=== PATIENT | male | born 1960 | race Caucasian/White ===

== ENCOUNTER 2016-09-01 21:18 | Emergency (ER) | payer MEDICARE ==
[2016-09-01] MEDS ORDERED: IPRATROPIUM/ALBUTEROL SULFATE 3 ML AMPUL.NEB NEB ONE (21:55)
--- NOTE | 2016-09-01 22:01 | ED Physician Documentation ---
General Adult - HISTORIAN Historian: patient, child - HPI Stated Complaint: FALL/CONGESTION Chief Complaint: General Adult Additional Information: Fell at home 2/2 coughing episode. Has hematoma right arm and skin tear left arm. Cough productive of thick green mucus for 4-5 days. Quit smoking 4 days ago. 6L O2/NC 07/01. - ROS CONST: denies: fever, sweating CVS/RESP: cough - PAST HX Past History: COPD, CHF Other History: other (back pain, chronic pain, IDDM) Immunizations: tetanus (5-6 years ago) Allergies/Adverse Reactions: Allergies Allergy/AdvReac Type Severity Reaction Status Date / Time morphine Allergy Verified 09/01/16 21:40 Home Medications: Ambulatory Orders Medication Instructions Recorded Fluticasone/Vilanterol [Breo 1 each IH BID 09/01/16 Ellipta 100-25 Mcg INH] Furosemide [Lasix] 40 mg PO DAILY 09/01/16 Guaifenesin [Mucinex] 600 mg PO BID 09/01/16 Insulin Aspart Protam & Aspart 60 unit SQ HS 09/01/16 [Novolog Mix 70-30 Flexpen Syrn] Insulin Aspart Protam & Aspart 70 unit SQ AM 09/01/16 [Novolog Mix 70-30 Flexpen Syrn] Olmesartan Medoxomil [Benicar] 20 mg PO QDAY 09/01/16 Oxycodone HCl [Oxycontin] 40 mg PO Q6 PRN 09/01/16 Oxycodone HCl/Acetaminophen 1 tab PO Q6 PRN 09/01/16 [Oxycodone-Acetaminophen 10-325] Venlafaxine HCl [Effexor Xr] 150 mg PO QDAY 09/01/16 - SOCIAL HX Smoking History: secondhand, cigarettes ([age], 3 PPP; [age] 1 PPD; 58 pack years) - FAMILY HX Family History: No (no signif) - VITAL SIGNS Vital Signs: Vital Signs Temp Pulse Resp BP Pulse Ox 98.3 F 91 H 20 101/67 96 09/01/16 21:25 09/01/16 21:25 09/01/16 21:25 09/01/16 21:25 09/01/16 21:25 - REVIEWED ASSESSMENTS Nursing Assessment Reviewed: Yes Vitals Reviewed: Yes Progress - Progress Progress: Chest 2 views History: COPD exacerbation Findings: Moderate emphysema is observed. Central pulmonary artery enlargement and calcified granulomas are noted. Heart size is normal. There is no infiltrate or pleural effusion. Impression: 1. Moderate emphysema. 2. Probable pulmonary hypertension. Electronically signed on Sep 01, 2016 10:49:04 PM CDT by: Tate Lux ED Results Lab/Radiology - Orders Orders: ED Orders Category Date Time Status Apply occlusive dressing D Care 09/01/16 21:55 Active Cleanse with NS and Chlorhexid 1T Care 09/01/16 21:55 Active CHEST P.A.&LAT 2 VIEWS [RAD] Stat Exams 09/01/16 Ordered Ipratropium/Albuterol Sulfate [Duoneb] Med 09/01/16 21:55 Once 3 ml NEB NOW ONE General Adult Physical Exam - PHYSICAL EXAM GENERAL APPEARANCE: mild distress EENT: eye inspection normal, ENT inspection normal NECK: normal inspection, supple RESPIRATORY: breath sounds normal (but markedly decreased throughout) CVS: reg rate & rhythm, heart sounds normal RECTAL: deferred BACK: normal inspection SKIN: warm/dry, normal color, other (Skin tear 10x4 cm (pt cut off fskin) left dorsal forearm. Hematoma 10/15 cm right ventral forearm with scattered 1-5 mm red petechial skin bleeds) EXTREMITIES: normal range of motion (gait), no evidence of injury NEURO: CN's nml as tested, motor nml, sensation nml, cognition normal Discharge Clincal Impression: COPD exacerbation Additional Instructions: Follow up with your providers as scheduled. Take all the prednisone as prescribed. Home Medications: Ambulatory Orders Fluticasone/Vilanterol [Breo Ellipta 100-25 Mcg INH] 1 each IH BID 09/01/16 Furosemide [Lasix] 40 mg PO DAILY 09/01/16 Guaifenesin [Mucinex] 600 mg PO BID 09/01/16 Insulin Aspart Protam & Aspart [Novolog Mix 70-30 Flexpen Syrn] 60 unit SQ HS Insulin Aspart Protam & Aspart [Novolog Mix 70-30 Flexpen Syrn] 70 unit SQ AM Olmesartan Medoxomil [Benicar] 20 mg PO QDAY 09/01/16 Oxycodone HCl [Oxycontin] 40 mg PO Q6 PRN 09/01/16 Oxycodone HCl/Acetaminophen [Oxycodone-Acetaminophen 10-325] 1 tab PO Q6 PRN Venlafaxine HCl [Effexor Xr] 150 mg PO QDAY 09/01/16 Condition: Fair Disposition: 01 HOME, SELF-CARE Decision to Admit: NO Decision Time: 23:20
[2016-09-01 22:41] LABS: BASOPHILS % 0.6 (0.0-1.5); EOSINOPHILS % 3.1 % (0.0-6.8); LYMPHOCYTES # 1.3 # k/uL (0.6-4.0); MEAN CORPUSCULAR HEMOGLOBIN 32.1 pg (28.0-34.0); MONOCYTES # 0.5 # k/uL (0.0-0.9); MONOCYTES % 7.8 % (0.0-11.0); NEUTROPHILS # 4.6 # k/uL (1.4-7.7)
[2016-09-01] MEDS ORDERED: BUDESONIDE 0.5MG/2ML AMPUL.NEB NEB ONE ×2 (22:51→22:53)
[2016-09-01 23:11] LABS: eGFR (African) > 60; eGFR (Non-African) 51
[2016-09-01] MEDS ORDERED: predniSONE 10 MG TABLET PO ONE (23:14)
--- NOTE | 2016-09-01 23:17 | Diagnostic Imaging Report ---
RHINA LEE [facility] [id number] [facility] [address] [address] Report Submission Date: Sep 01, 2016 10:49:04 PM CDT Patient Study Name: JULIO DUCKWORTH Date: Sep 01, 2016 10:26:46 PM CDT Modality Type: CR Gender: M Description: CHEST : 56 Institution: [facility] Physician: RHINA LEE - YOLANDA Chest 2 views History: COPD exacerbation Findings: Moderate emphysema is observed. Central pulmonary artery enlargement and calcified granulomas are noted. Heart size is normal. There is no infiltrate or pleural effusion. Impression: 1. Moderate emphysema. 2. Probable pulmonary hypertension. Electronically signed on Sep 01, 2016 10:49:04 PM CDT by: Tate ROBERTSON
[2016-09-02 00:10] VITALS: BP 94/60
== END 2016-09-01 23:30 | disposition home or self-care (01) ==
LOC: ED 21:18
DX: J44.1 Chronic obstructive pulmonary disease with (acute) exacerbation (principal)
CPT/HCPCS: 71020; 80053; 83880; 85025; J7512; J7626; 99283; S1016